=== PATIENT | male | born 2005 | race Two or more races ===

== ENCOUNTER 2023-12-03 05:44 | Emergency (ER) | payer SELFPAY ==
[2023-12-03 06:13] VITALS: BP 120/75; PULSE 80; RESP 16; TEMP 98.4; BMI 21.2
[2023-12-03] MEDS ORDERED: KETOROLAC TROMETHAMINE 30 MG/1 ML VIAL ONE (08:49)
[2023-12-03] MEDS: KETOROLAC TROMETHAMINE 30 MG/1 ML VIAL IM ONE (08:54)
== END 2023-12-03 11:50 | disposition home or self-care (01) ==
LOC: EDBD 05:44 → FER 05:44
PROC: 3E0133Z Introduction of Anti-inflammatory into Subcutaneous Tissue, Percutaneous Approach (ICD-10-PCS; principal; 2023-12-03)
DX: S02.2XXA Fracture of nasal bones, initial encounter for closed fracture (principal); Y04.8XXA Assault by other bodily force, initial encounter
CPT/HCPCS: 70450-TC; 70480-TC; 70486-TC; 71046-TC-FY; 72125-TC; 99284-25